=== PATIENT | female | born 1985 | race Two or more races ===

== ENCOUNTER 2016-10-07 13:12 | Emergency (ER) | payer OTHER ==
[~2016-10-07] VITALS: Ht 165.1 cm; Wt 83.2 kg
[~2016-10-07 13:12] MED LIST: ADDERALL XR 2020 MG PO; ADDERALL20 MG PO; BENTYL20 MG PO; CATAPRES0.1 MG PO; CITRATE OF MAG296 ML PO; COLACE100 MG PO; DULCOLAX5 MG PO; IBUPROFEN200 M1 PO; KEFLEX500 MG PO; MIRALAX17 GM PO; MORGIDOX100 MG PO; MOTRIN IB200 MG PO; PEPTO BISMOL262 MG PO; PERCOCET 5/31 TABLET PO; RESTORIL7.5 MG PO; TRI-ESTARYLLA1 EACH PO; ULTRAM50 MG PO; VYVANSE30 MG PO; ZOFRAN ODT4 MG PO; ZOFRAN4 MG PO; ZOFRAN8 MG PO
[2016-10-07] MEDS ORDERED: FLEXERIL10 MG PO (15:35)
[2016-10-07] MEDS ORDERED: LIDODERM 5% P1 PATCH TD (15:35)
[2016-10-07] MEDS ORDERED: NAPROXEN500 MG PO (15:43)
[2016-10-07] MEDS ORDERED: PREDNISONE20 MG PO (15:43)
[2016-10-07 16:11] VITALS: BP 141/75
== END 2016-10-07 16:16 | disposition home or self-care (01) ==
LOC: EME 13:12
DX: S39.012A Strain of muscle, fascia and tendon of lower back, initial encounter (principal); X50.9XXA Other and unspecified overexertion or strenuous movements or postures, initial encounter; Y93.B3 Activity, free weights
CPT/HCPCS: 99281; 99283; J7512

== ENCOUNTER 2017-05-17 19:06 | Emergency (ER) | payer OTHER ==
[~2017-05-17] VITALS: Ht 162.6 cm; Wt 82.2 kg
[~2017-05-17 19:06] MED LIST changes: +FLEXERIL10 MG PO; +LIDODERM 5% P1 PATCH TD; +NAPROXEN500 MG PO; +PREDNISONE20 MG PO
[2017-05-17 19:07] VITALS: BP 139/95
== END 2017-05-17 20:45 | disposition left against medical advice (07) ==
LOC: EME 19:06
DX: L72.3 Sebaceous cyst (principal); Z53.21 Procedure and treatment not carried out due to patient leaving prior to being seen by health care provider

== ENCOUNTER 2017-06-02 05:28 | Emergency (ER) | payer OTHER ==
[~2017-06-02] VITALS: Ht 162.6 cm; Wt 81.8 kg
[2017-06-02 09:20] LABS: ADD MIUA? YES; BILIRUBIN NEGATIVE; BLOOD MODERATE; COLOR STRAW ((YELLOW)); GLUCOSE (STRIP) NEGATIVE; KETONES NEGATIVE; LEUKOCYTES NEGATIVE; NITRITE NEGATIVE; PROTEIN (STRIP) NEGATIVE; SPECIFIC GRAVITY 1.005 (1.000-1.030); UROBILINOGEN 0.2 MG/DL (0.2-1.0)
[2017-06-02 09:21] LABS: INTERNAL CONTROL VALID? YES
[2017-06-02 09:27] LABS: BACTERIA RARE /HPF; EPITHELIAL CELLS RARE /HPF; MUCUS NONE SEEN /LPF; RED BLOOD CELLS 0-5 /HPF (0-5); UCUL ADDED? NO; WHITE BLOOD CELLS 0-5 /HPF (0-5)
[2017-06-02 09:48] LABS: COCAINE NEGATIVE (150 ng/mL); PHENCYCLIDINE NEGATIVE (25 ng/mL); THC CANNABINOIDS NEGATIVE (50 ng/mL)
[2017-06-02 09:49] LABS: ADD MEDTOX COMMENT Y; AMPHETAMINE NEGATIVE (500 ng/mL); BARBITURATES NEGATIVE (200 ng/mL); BENZODIAZEPINES PRESUMPTIVE POSITIVE (150 ng/mL); INTERNAL CONTROLS VALID? YES; METHADONE NEGATIVE (200 ng/mL); METHAMPHETAMINE NEGATIVE (500 ng/mL); OPIATES (MORPHINE) NEGATIVE (100 ng/mL); OXYCODONE NEGATIVE (100 ng/mL); PROPOXYPHENE NEGATIVE (300 ng/mL); TRICYCLIC ANTIDEPRESSANTS NEGATIVE (300 ng/mL)
[2017-06-02 10:18] LABS: BENZODIAZEPINES, URINE SCREEN POSITIVE (200 ng/mL)
[2017-06-02 10:48] VITALS: BP 127/93
== END 2017-06-02 10:49 | disposition home or self-care (01) ==
LOC: EME → EDBD 05:28 → EME 05:28
PROVIDERS: Emergency Medicine
DX: F19.129 Other psychoactive substance abuse with intoxication, unspecified (principal); F31.9 Bipolar disorder, unspecified; F17.200 Nicotine dependence, unspecified, uncomplicated; Y92.009 Unspecified place in unspecified non-institutional (private) residence as the place of occurrence of the external cause; Z90.49 Acquired absence of other specified parts of digestive tract
CPT/HCPCS: 81003; 84703; 84999; 99281; 99284; J2405; J7030

== ENCOUNTER 2017-12-24 10:37 | Emergency (ER) | payer OTHER ==
[~2017-12-24] VITALS: Ht 165.1 cm; Wt 85.7 kg
[~2017-12-24 10:37] MED LIST changes: +XANAX0.5 MG PO
[2017-12-24 11:12] LABS: HEMATOCRIT 40.4 % (36.0-46.0); HEMOGLOBIN 13.6 G/DL (11.9-15.5); MCH 29.2 PG (29.0-34.0); MCHC 33.7 G/DL (30.0-36.0); MCV 86.7 FL (83-99); RBC DIS.WIDTH-SD 40.9 % (39-53); RED BLOOD COUNT 4.66 M/uL (3.80-5.20); WHITE BLOOD COUNT 6.3 K/uL (4.1-10.2)
[2017-12-24 11:21] LABS: CHLORIDE 104 mEq/L (99-109); POTASSIUM 4.1 mEq/L (3.7-5.4)
[2017-12-24 11:22] LABS: SODIUM 139 mEq/L (136-147)
[2017-12-24 11:24] LABS: GLUCOSE 101 mg/dL (70-99); TOTAL PROTEIN 7.3 g/dL (6.4-8.3)
[2017-12-24 11:26] LABS: TOTAL BILIRUBIN 0.8 mg/dL (0.0-1.0)
[2017-12-24 11:27] LABS: ALKALINE PHOSPHATASE 69 IU/L (3-129); CREATININE 0.7 mg/dL (0.6-1.3); GFR ESTIMATE (CALCULATED) > 59 mL/min/
[2017-12-24 11:29] LABS: AST (GOT) 15 IU/L (2-34); UREA NITROGEN (BUN) 9 mg/dL (9-23)
[2017-12-24 11:30] LABS: ALT (GPT) 13 IU/L (3-49)
[2017-12-24 11:37] LABS: QUANTITATIVE HCG < 4.0 MIU/ML
[2017-12-24 12:06] LABS: PLAT.SUFFICIENCY ADEQUATE; PLATELET COUNT 199 K/uL (156-360)
[2017-12-24 12:49] LABS: APPEARANCE SL.HAZY ((CLEAR)); BILIRUBIN NEGATIVE; BLOOD NEGATIVE; COLOR YELLOW ((YELLOW)); GLUCOSE (STRIP) NEGATIVE; KETONES NEGATIVE; LEUKOCYTES SMALL; NITRITE NEGATIVE; PROTEIN (STRIP) 30; SPECIFIC GRAVITY 1.017 (1.000-1.030); UROBILINOGEN 0.2 MG/DL (0.2-1.0)
[2017-12-24 12:55] LABS: BACTERIA RARE /HPF; EPITHELIAL CELLS 2+ /HPF; MUCUS TRACE /LPF; RED BLOOD CELLS 0-5 /HPF (0-5); UCUL ADDED? NO; WHITE BLOOD CELLS 0-5 /HPF (0-5)
[2017-12-24] MEDS ORDERED: MOTRIN600 MG PO (17:59)
[2017-12-24] MEDS ORDERED: ZOFRAN ODT4 MG PO (17:59)
[2017-12-24 18:09] VITALS: BP 118/63
== END 2017-12-24 18:09 | disposition home or self-care (01) ==
LOC: EME 10:37
DX: R10.31 Right lower quadrant pain (principal); R11.2 Nausea with vomiting, unspecified; R39.198 Other difficulties with micturition; Z90.49 Acquired absence of other specified parts of digestive tract; N88.8 Other specified noninflammatory disorders of cervix uteri
CPT/HCPCS: 74176; 76856; 80053; 81003; 84702; 85027; 99281; 99284